=== PATIENT | female | born 1970 | race Caucasian/White ===

== ENCOUNTER 2018-07-01 10:27 | Day surgery (SDC) | payer OTHER ==
[~2018-07-01] VITALS: Ht 154.9 cm; Wt 81.2 kg
[~2018-07-01 10:27] MED LIST: DAPTOMYCIN500 MG IV; FORTAZ IV; OXYACE5T PO; OXYC5 PO
[2018-07-08] MEDS ORDERED: Caltrate Plus1 EACH PO (12:10)
[2018-07-08] MEDS ORDERED: ASCO500 PO (12:11)
[2018-07-08] MEDS ORDERED: ALLER-TEC D 5-1 EACH PO (12:11)
[2018-07-08] MEDS ORDERED: ZINC15 PO (12:11)
== END 2018-07-01 13:05 | disposition home or self-care (01) ==
LOC: ORSCSDS 10:27
DX: D17.1 Benign lipomatous neoplasm of skin and subcutaneous tissue of trunk (principal); Z53.8 Procedure and treatment not carried out for other reasons
CPT/HCPCS: J0690; J2250; J3010; J7120

== ENCOUNTER 2018-07-13 11:00 | Day surgery (SDC) | payer OTHER ==
[~2018-07-13] VITALS: Ht 154.9 cm; Wt 81.8 kg
[~2018-07-13 11:00] MED LIST changes: +ALLER-TEC D 5-1 EACH PO; +ASCO500 PO; +Caltrate Plus1 EACH PO; +ZINC15 PO
== END 2018-07-13 13:50 | disposition home or self-care (01) ==
LOC: ORSCSDS 11:00
PROVIDERS: Surgery
PROC: 0JB70ZZ Excision of Back Subcutaneous Tissue and Fascia, Open Approach (ICD-10-PCS; principal; 2018-07-13 12:00)
DX: D17.1 Benign lipomatous neoplasm of skin and subcutaneous tissue of trunk (principal); E78.5 Hyperlipidemia, unspecified; K21.9 Gastro-esophageal reflux disease without esophagitis; Z87.891 Personal history of nicotine dependence; E66.01 Morbid (severe) obesity due to excess calories; Z68.34 Body mass index [BMI] 34.0-34.9, adult
CPT/HCPCS: 88304; J0690; J1885; J2250; J2405; J3010; J7120

== ENCOUNTER → 2019-02-08 | Outpatient (CLI) | payer OTHER ==
[2019-02-10 15:07] LABS: HPV 16 Negative (Negative); HPV 18 Negative (Negative); HPV OTHER HR TYPES Negative (Negative)
== END ==
LOC: LAB 16:10 → LAB SHORT 16:10
PROVIDERS: Registered Nurse Community Health
DX: Z12.4 Encounter for screening for malignant neoplasm of cervix (principal)
CPT/HCPCS: 87624; G0123